=== PATIENT | male | born 1960 | race Caucasian/White ===

== ENCOUNTER 2022-08-13 19:28 | Emergency (ER) | payer MEDICAID ==
[2022-08-13] MEDS ORDERED: Albuterol/Ipratropium 3.0-0.5 MG/3 ML Neb Soln NEB ONE (20:32)
[2022-08-13] MEDS ORDERED: Pantoprazole 40 MG Tab.CR PO ONE (21:02)
[2022-08-13 21:09] LABS: ESTIMATED GFR 96 mL/min (>60)
[2022-08-13 21:16] LABS: CORONAVIRUS COVID-19 NAA NEGATIVE (NEGATIVE)
[2022-08-13] MEDS ORDERED: Albuterol 90 MCG/6.7 GM Inhaler INH ONE (23:56)
== END 2022-08-14 01:32 ==
LOC: JP.ED 19:28
DX: M06.9 Rheumatoid arthritis, unspecified (principal); F10.920 Alcohol use, unspecified with intoxication, uncomplicated; D64.9 Anemia, unspecified; F17.210 Nicotine dependence, cigarettes, uncomplicated; K21.9 Gastro-esophageal reflux disease without esophagitis; Z86.16 Personal history of COVID-19; Z79.899 Other long term (current) drug therapy; Y90.8 Blood alcohol level of 240 mg/100 ml or more; Z20.822 Contact with and (suspected) exposure to COVID-19
CPT/HCPCS: 0241U; 36415; 80053; 80305; 80307; 85025; 94640; 99285; A9270; 99284; J7620